=== PATIENT | female | born 1975 | race Caucasian/White ===

== ENCOUNTER 2022-03-16 14:56 | Outpatient (CLI) | payer BC, OTHER | END 2022-03-16 14:57 | disposition home or self-care (01) | LOC: CSHMAMMO 14:56 | PROVIDERS: ATTEND Family Medicine Sports Medicine | DX: Z12.31 Encounter for screening mammogram for malignant neoplasm of breast (principal) | CPT/HCPCS: 77063; 77067 ==

== ENCOUNTER 2023-08-23 13:09 | Outpatient (CLI) | payer OTHER | END 2023-08-23 13:10 | disposition home or self-care (01) | LOC: CSHMAMMO 13:09 | PROVIDERS: ATTEND Obstetrics & Gynecology | DX: Z12.31 Encounter for screening mammogram for malignant neoplasm of breast (principal); Z80.3 Family history of malignant neoplasm of breast | CPT/HCPCS: 77063; 77067 ==